=== PATIENT | male | born 2000 | race Caucasian/White ===

== ENCOUNTER 2022-08-14 15:08 | Emergency (ER) | payer BC ==
[~2022-08-14] VITALS: Ht 188 cm; Wt 122.5 kg
[2022-08-14 15:17] VITALS: BP 124/78
== END 2022-08-14 15:33 | disposition left against medical advice (07) ==
LOC: ER 15:11
DX: Z53.21 Procedure and treatment not carried out due to patient leaving prior to being seen by health care provider (principal)
CPT/HCPCS: 99281; A6403